=== PATIENT | female | born 1985 | race Caucasian/White ===

== ENCOUNTER 2016-12-13 05:38 | Inpatient (IN) | payer BC, OTHER ==
[~2016-12-13] VITALS: Ht 160 cm; Wt 82.1 kg
[~2016-12-13 05:38] MED LIST: PREN-92 PO
[2016-12-13] MEDS ORDERED: LR 1,000 ML IV PRN (05:39)
[2016-12-13] MEDS ORDERED: AMPICILLIN 2 G in NORMAL SALINE 100 ML IV ONE (05:40)
[2016-12-13] MEDS ORDERED: LIDOCAINE 1% (10mg/ml) 2ml SDV ID PRN (05:45)
[2016-12-13] MEDS ORDERED: CALCIUM CARBONATE 500mg Chewable TAB PO PRN ×2 (05:45→06:45)
[2016-12-13] MEDS ORDERED: MAG-AL + SIM LIQUID 30 ML UDC PO PRN ×2 (05:45→06:45)
[2016-12-13] MEDS ORDERED: ACETAMINOPHEN 500 MG TABLET PO PRN ×2 (05:45→06:45)
[2016-12-13 05:53] LABS: HCT - HEMATOCRIT 36.9 % (36-46); HGB - HEMOGLOBIN 12.1 GM/DL (12-16); MEAN CORPUSCULAR HGB 27.4 UUG (26-34); MEAN CORPUSCULAR HGB CONC(MCHC 32.8 GM/DL (31-37); MEAN CORPUSCULAR VOLUME 83.7 UM3 (80-100); RED BLOOD COUNT 4.41 M/MM3 (4.00-5.20)
[2016-12-13 06:03] VITALS: BP 114/73; PULSE 76; RESP 20; TEMP 98.1
[2016-12-13] MEDS ORDERED: OXYTOCIN 30 UNIT in D5W 500 ML IV ONE (06:35)
[2016-12-13] MEDS ORDERED: DiphenhydrAMINE 25 MG CAPSULE PO PRN (06:45)
[2016-12-13] MEDS ORDERED: HYDROCORTISONE 2.5% CREAM 30 GM RECTALLY PRN (06:45)
[2016-12-13] MEDS ORDERED: MILK OF MAGNESIA 30 ML SUSP PO PRN (06:45)
[2016-12-13] MEDS ORDERED: PHENYLEPHRINE RECTAL SUPPOSITORY RECTALLY PRN (06:45)
[2016-12-13] MEDS ORDERED: HYDROCODONE/APAP 5 mg/325 mg TABLET PO PRN (06:45)
[2016-12-13] MEDS ORDERED: ZINC OXIDE 40% (Diaper Rash Oint) 56gm TUBE TOP PRN (07:00)
[2016-12-13] MEDS ORDERED: PHYTONADIONE 1mg/0.5ml (Neonatal) INJECTION IM ONE (07:00)
[2016-12-13] MEDS ORDERED: HEPATITIS-B *PED* VAC 5mcg/0.5ml INJECTION IM ONE (07:00)
[2016-12-13] MEDS ORDERED: AQUAPHOR TOPICAL OINTMENT 52.5 G TUBE TOP PRN (07:00)
[2016-12-13] MEDS ORDERED: SUCROSE ORAL SOLN 24% 2ml PO PRN (07:00)
[2016-12-13] MEDS ORDERED: ERYTHROMYCIN 0.5% EYE OINT 3.5gm BOTH EYES ONE (07:00)
[2016-12-13] MEDS: IBUPROFEN 800 MG TABLET PO SCH ×2 (07:31→16:08)
[2016-12-13] MEDS: DOCUSATE CALCIUM 240 MG CAPSULE PO SCH (09:00)
[2016-12-13 09:30] VITALS: BP 124/78; PULSE 61; RESP 18; TEMP 98
[2016-12-13] MEDS ORDERED: AMPICILLIN 1 G in NORMAL SALINE 100 ML IV SCH (10:00)
[2016-12-13 10:30] VITALS: BP 102/76; PULSE 67; RESP 18; TEMP 98.1
--- NOTE | 2016-12-13 11:37 | LDNF ---
This is a delivery note for a patient of Dr. Ortiz's. Date of Delivery: 12/13/2016 Ms. Aparicio reports having contractions since about midnight, but she was able to sleep through them and in fact did continue to go back to sleep. She presented to [facility] at about 5:30 this morning dilated 7 cm with a bulging bag. I was paged and immediately came; however, the baby delivered shortly prior to my arrival. The RN had already clamped the cord. Baby was in mother's arms when I arrived in the room. We then waited a few more moments. The placenta delivered spontaneously, intact, with normal configuration and normal-appearing three-vessel cord. Baby is a liveborn female with Apgars of 7/9/9. There was a spontaneous first-degree midline laceration. The area was infiltrated with dilute lidocaine, then repaired with a [id number] suture of 3-0 Vicryl. Total blood loss was approximately 200 ml. At the time of this dictation mother and baby are doing well. FABIOLA
--- NOTE | 2016-12-13 18:30 | NUR ---
Care Assumed Report from Julio Peterson RN. Care assumed.
[2016-12-13 18:40] VITALS: BP 128/85; PULSE 73; RESP 18; TEMP 98; O2SAT 99
--- NOTE | 2016-12-13 18:45 | NUR ---
Assessment Pt resting in bed holding infant. Denies pain. States that bleeding is minimal without clots. VSS. Getting up around room doing self and cares. Discussed POC with pt. Denies needs at this time. Encouraged to call PRN.
[2016-12-14 00:30] VITALS: BP 131/76; PULSE 75; RESP 16; TEMP 97.7
[2016-12-14] MEDS: IBUPROFEN 800 MG TABLET PO SCH ×3 (00:30→16:00)
--- NOTE | 2016-12-14 00:30 | NUR ---
Status Pt asleep when RN entered room. VSS. Motrin given as scheduled. Pt states she has some mild cramping when baby is nursing, but denies any other pain. Denies any needs. Sitting up feeding infant when RN left room.
--- NOTE | 2016-12-14 01:40 | NUR ---
Chart Check 24 hour chart check completed
--- NOTE | 2016-12-14 08:16 | PNPDOC ---
Progress Note PPD1 Rubella: Immune GBS: Positive Blood Type:O pos Subjective 12/14/16 Lochia: Moderate Pain: Controlled Voiding: Voiding Nausea and Vomiting: No Nausea/Vomiting Objective VSS AF Vital Signs Date Time Temp Pulse Resp B/P Pulse Ox O2 Delivery O2 Flow Rate FiO2 12/14/16 00:30 97.7 75 16 131/76 12/13/16 18:40 99 Room Air General: Alert and Oriented Respiratory Ausculatation: Clear Bilaterally Abdomen: Fundus Firm Extremities: Non-tender Assessment Plan Routine Care (Plan for dismissal tomorrow.) FRANKLIN CHAPA [employer] Dec 14, 2016 08:16
[2016-12-14] MEDS: DOCUSATE CALCIUM 240 MG CAPSULE PO SCH (08:34)
[2016-12-14 09:07] VITALS: BP 117/80; PULSE 65; RESP 16; TEMP 98.1; O2SAT 99
--- NOTE | 2016-12-14 10:59 | NUR ---
CM THIS WORKER MET WITH PT IN ROOM. PT SITTING ON BED AND BABY NEXT TO MOTHER ON BED. THIS WORKER INTRODUCED SELF AND ROLE OF CASE MANAGEMENT. MOTHER REPORTED THAT SHE HAS EVERYTHING NEEDED AT HOME FOR BABY. MOTHER HAS A BREAST PUMP AT HOME. MOTHER REPORTED THAT SHE HAS TWO OTHER CHILDREN AGES 7 AND 5. MOTHER PLANS TO STAY AT HOME WITH THIS BABY FOR A FEW MONTHS. MOTHER REPORTED THAT SHE HAS FAMILY SUPPORT THAT LIVES NEARBY. MOTHER EXPLAINED THAT FATHER WORKS OUT OF STATE AND IS GONE FOR 3 WEEKS AT A TIME. THIS WORKER INQUIRED REGARDING POST DEPRESSION. MOTHER REPORTED THAT SHE AND HER HAVE DISCUSSED THIS AGAIN AND THAT THEY ARE BOTH GOING TO BE "ON THE LOOKOUT FOR IT." MOTHER DENIED NEEDS AT THIS TIME. MOTHER PLANNING TO USE DR. LOWRY FOR BABY'S PHYSICIAN. PARENTS WILL PLAN TO ADD BABY TO THE [employer] INS[employer]ANCE PLAN. THIS WORKER PROVIDED CONTACT INFORMATION FOR PT AND ENCOURAGED TO CONTACT THIS WORKER WITH ANY NEEDS.
[2016-12-14 15:36] VITALS: BP 128/78; PULSE 74; RESP 18; TEMP 97.7; O2SAT 98
[2016-12-14 22:18] VITALS: BP 120/85; PULSE 67; RESP 18; TEMP 98.1; O2SAT 99
[2016-12-15] MEDS: IBUPROFEN 800 MG TABLET PO SCH
--- NOTE | 2016-12-15 01:08 | NUR ---
Chart Check 24 hour chart check completed
--- NOTE | 2016-12-15 02:39 | NUR ---
Shift Summary Pt's VS stable. Pt reports minimal lochia and voiding w/o difficulty. Pt performing cares for self and baby with help of . Pt tolerating po fluids and regular diet. Pt reports controlled pain and refuses po pain meds as ordered. Pt up ad verónica in room. Pt attentive to needs and bonding appropriately with . Pt baby well in cradle hold ad verónica. Call cruz in reach. Will continue to monitor per plan of care.
[2016-12-15 06:15] VITALS: BP 128/91; PULSE 69; RESP 18; TEMP 97.9; O2SAT 99
[2016-12-15 06:38] VITALS: PULSE 69; RESP 18
[2016-12-15] MEDS ORDERED: IBUP-1547 PO (08:03)
[2016-12-15] MEDS ORDERED: DOCU240C40 PO (08:03)
[2016-12-15] MEDS ORDERED: HYDR-4246 PO (08:03)
--- NOTE | 2016-12-15 09:26 | NUR ---
Discharge Patient was given discharge teaching and reviewed the instructions. She verbalized understanding and was given prescriptions. She has a return appointment with Dr. Ortiz on 01/25/17 at 230pm. She was dismissed ambulatory with , daughter and baby at 0910.
== END 2016-12-15 09:10 | disposition home or self-care (01) | DRG 775 ==
LOC: MC 05:38
PROVIDERS: ADMIT Obstetrics & Gynecology; ATTEND Obstetrics & Gynecology
PROC: 10E0XZZ Delivery of Products of Conception, External Approach (ICD-10-PCS; principal; 2016-12-13)
PROC: 0HQ9XZZ Repair Perineum Skin, External Approach (ICD-10-PCS; 2016-12-13)
DX: O62.3 Precipitate labor (principal); O70.0 First degree perineal laceration during delivery; O99.824 Streptococcus B carrier state complicating childbirth; Z3A.38 38 weeks gestation of pregnancy; Z37.0 Single live birth
CPT/HCPCS: 85027